=== PATIENT | male | born 1970 | race Caucasian/White ===

== ENCOUNTER → 2017-04-21 | Outpatient (CLI) | payer OTHER ==
[~2017-04-21] MED LIST: ATEN50 PO; ERYT.5TO OP; HYDCHL12.5 PO; RANI150 PO; VALS80
== END | disposition home or self-care (01) ==
LOC: LAB 19:05
DX: B35.3 Tinea pedis (principal); R21 Rash and other nonspecific skin eruption
CPT/HCPCS: 87070; 87077; 87186; 87205